=== PATIENT | female | born 1995 | race American Indian/Alaskan Native ===

== ENCOUNTER 2021-05-30 11:14 | Emergency (ER) | payer SELFPAY ==
[2021-05-30] MEDS ORDERED: ACETAMINOPHEN 325 MG TAB PO ONE (12:24)
[2021-05-30] MEDS ORDERED: BUTALB/ACETAMINOPHEN/CAFFEINE TAB PO ONE (12:24)
[2021-05-30] MEDS ORDERED: ONDANSETRON 4 MG ODT TAB PO ONE (12:24)
--- NOTE | 2021-05-30 12:30 | Emergency Department Report ---
- General Chief Complaint: Headache Stated Complaint: SALINAS Time Seen by Provider: 05/30/21 12:01 Source: patient Mode of arrival: Ambulatory Limitations: No Limitations - History of Present Illness Initial Comments: Patient is a 25-year-old female presents emergency room with complaints of URI symptoms that began yesterday. Patient has associated headache, nasal congestion, rhinorrhea, chills, generalized body aches, sore throat. She denies any vomiting, diarrhea, shortness of breath, chest pain, abdominal pain. She denies any known sick contacts or recent travel. She has not been vaccinated for COVID-19. No past medical history. No allergies to medications. - Related Data Previous Rx's Medication Instructions Recorded Last Taken Type Benzonatate [Tessalon Perles] 100 mg PO Q8HR PRN #12 capsule 05/30/21 Unknown Rx Butalb/Acetaminophen/Caffeine 1 cap PO Q8HR PRN #10 cap 05/30/21 Unknown Rx [Fioricet 50-300-40 mg CAP] guaiFENesin ER [Mucinex ER] 600 mg PO Q12H #14 tablet.er 05/30/21 Unknown Rx Allergies Allergy/AdvReac Type Severity Reaction Status Date / Time No Known Allergies Allergy Unverified 05/30/21 11:57 ED Review of Systems ROS: Stated complaint: SALINAS Other details as noted in HPI Comment: All other systems reviewed and negative ED Past Medical Hx - Past Medical History Previous Medical History?: No - Surgical History Past Surgical History?: No - Medications Home Medications: Home Medications Medication Instructions Recorded Confirmed Last Taken Type Benzonatate [Tessalon Perles] 100 mg PO Q8HR PRN #12 capsule 05/30/21 Unknown Rx Butalb/Acetaminophen/Caffeine 1 cap PO Q8HR PRN #10 cap 05/30/21 Unknown Rx [Fioricet 50-300-40 mg CAP] guaiFENesin ER [Mucinex ER] 600 mg PO Q12H #14 tablet.er 05/30/21 Unknown Rx ED Physical Exam - General Limitations: No Limitations General appearance: alert, in no apparent distress - Head Head exam: Present: atraumatic, normocephalic - Eye Eye exam: Present: normal appearance - ENT ENT exam: Present: normal orophraynx, mucous membranes moist, TM's normal bilaterally, normal external ear exam - Neck Neck exam: Present: full ROM. Absent: meningismus - Respiratory Respiratory exam: Present: normal lung sounds bilaterally. Absent: respiratory distress, wheezes, rales, rhonchi, stridor, chest wall tenderness, accessory muscle use, decreased breath sounds, prolonged expiratory - Cardiovascular Cardiovascular Exam: Present: regular rate, normal rhythm, normal heart sounds. Absent: systolic murmur, diastolic murmur, rubs, gallop - Neurological Exam Neurological exam: Present: alert, oriented X3 - Psychiatric Psychiatric exam: Present: normal affect, normal mood - Skin Skin exam: Present: warm, dry, intact ED Course Vital Signs 05/30/21 05/30/21 05/30/21 11:56 11:57 12:51 Temperature 100.9 F H 97.8 F Pulse Rate 109 H 66 Respiratory 16 18 Rate Blood Pressure 122/79 Blood Pressure 120/72 [Left] O2 Sat by Pulse 99 Oximetry ED Medical Decision Making - Lab Data Vital Signs 05/30/21 05/30/21 05/30/21 11:56 11:57 12:51 Temperature 100.9 F H 97.8 F Pulse Rate 109 H 66 Respiratory 16 18 Rate Blood Pressure 122/79 Blood Pressure 120/72 [Left] O2 Sat by Pulse 99 Oximetry - Medical Decision Making Patient is a 25-year-old female presents emergency room with complaints of URI symptoms that began yesterday. Patient has associated headache, nasal congestion, rhinorrhea, chills, generalized body aches, sore throat. She denies any vomiting, diarrhea, shortness of breath, chest pain, abdominal pain. She denies any known sick contacts or recent travel. She has not been vaccinated for COVID-19. No past medical history. No allergies to medications. Initial vitals with fever and tachycardia which improved upon Tylenol administration. Patient given medications for symptoms with improvement. Normal oropharynx, normal TMs and canals, breath sounds are clear bilaterally. Symptoms likely consistent with URI. Advised patient Please take medication as prescribed as needed. Increase your fluid intake over the next several days. Follow-up with your primary care doctor for reexamination. Return to emergency room for any new or worsening symptoms. Recommend outpatient COVID-19 testing and if positive will need to self quarantine for 10 days from onset of symptoms. Critical care attestation.: If time is entered above; I have spent that time in minutes in the direct care of this critically ill patient, excluding procedure time. ED Disposition Clinical Impression: URI (upper respiratory infection) Qualifiers: URI type: unspecified URI Qualified Code(s): J06.9 - Acute upper respiratory infection, unspecified Disposition: HOME / SELF CARE / HOMELESS Is pt being admited?: No Does the pt Need Aspirin: No Condition: Stable Instructions: Viral Respiratory Infection Additional Instructions: Please take medication as prescribed as needed. Increase your fluid intake over the next several days. Follow-up with your primary care doctor for reexamination. Return to emergency room for any new or worsening symptoms. Recommend outpatient COVID-19 testing and if positive will need to self quaranti ne for 10 days from onset of symptoms. Prescriptions: Butalb/Acetaminophen/Caffeine [Fioricet 50-300-40 mg CAP] 1 cap PO Q8HR PRN #10 cap PRN Reason: headache guaiFENesin ER [Mucinex ER] 600 mg PO Q12H #14 tablet.er Benzonatate [Tessalon Perles] 100 mg PO Q8HR PRN #12 capsule PRN Reason: cough Referrals: MAYNOR WALTON MD [Staff Physician] - 3-5 Days [facility] [Provider Group] - 3-5 Days Forms: Work/School Release Form(ED) Time of Disposition: 12:28 Print Language: GHANAIAN
[2021-05-30 12:52] VITALS: BP 120/72
== END 2021-05-30 12:52 | disposition home or self-care (01) ==
LOC: ED 11:14
DX: J06.9 Acute upper respiratory infection, unspecified (principal)
CPT/HCPCS: 99282; J3490; Q0162